=== PATIENT | male | born 2000 | race Caucasian/White ===

== ENCOUNTER → 2024-02-20 07:44 | Outpatient (CLI) | payer OTHER, SELFPAY ==
--- NOTE | 2024-02-20 07:47 | DI.MRI.S_ITS ---
PROCEDURE: MR ANKLE LT WO CON INDICATIONS: LT ANKLE SPRAIN TECHNIQUE: Noncontrast sagittal T1 spin echo and T2 fast spin echo with fat saturation, axial proton density fast spin echo and T2 fast spin echo with fat saturation, coronal T1 spin echo and T2 fast spin echo with fat saturation through the ankle/hindfoot. COMPARISON: None. FINDINGS: Image quality: Excellent Tendons: Mild tenosynovitis of the posterior tibialis. The flexor digitorum longus and the flexor hallucis longus are unremarkable. The extensor tendons are unremarkable. Longitudinal split tear of the peroneal brevis. The peroneal longus is unremarkable. The distal Achilles tendon is unremarkable. Ligaments: The anterior and the posterior tibiofibular ligaments are unremarkable. Marked thickening of the anterior talofibular ligament, representing prior sprain. The posterior talofibular ligament is intact. Thickening of the calcaneofibular ligament, representing prior sprain. Prior sprain of the deep portion of the deltoid ligament. Sinus tarsi: No fibrosis Plantar fascia: Unremarkable Muscle: Normal in signal Bones: Mild marrow edema the medial malleolus, favor reactive. No acute fracture of the medial malleolus. No osteochondral lesion of the talus dome. Trace tibiotalar effusion. IMPRESSION: 1. Longitudinal split tear of the peroneal brevis. 2. Prior sprain of the anterior talofibular and the calcaneofibular ligament. 3. Prior sprain of the deep portion of the deltoid ligament with subjacent reactive marrow edema of the medial malleolus. Dictated by: Lexy Pierson M.D. on 02/20/2024 at 13:00 Approved by: Lexy Pierson M.D. on 02/20/2024 at 13:06
== END ==
PROVIDERS: PCP Nurse Practitioner Family; Referring Provider Nurse Practitioner Family; Visit Provider Nurse Practitioner Family
DX: M25.572 Pain in left ankle and joints of left foot (principal); S96.812A Strain of other specified muscles and tendons at ankle and foot level, left foot, initial encounter; M25.472 Effusion, left ankle; Z87.828 Personal history of other (healed) physical injury and trauma
CPT/HCPCS: 73721

== ENCOUNTER → 2024-08-10 13:08 | Outpatient (CLI) | payer OTHER, SELFPAY ==
[2024-08-10 14:02] LABS: Influenza A - CEPHEID Flu A NEGATIVE (NEGATIVE); Influenza B - CEPHEID Flu B NEGATIVE (NEGATIVE); Respiratory Syncytial Virus Negative (Negative)
[2024-08-10 14:15] LABS: COVID-19 CEPHEID 4-PLEX PCR Negative (Negative)
== END ==
PROVIDERS: PCP Nurse Practitioner Family; Visit Provider Physician Assistant Surgical
DX: R52 Pain, unspecified (principal); R11.0 Nausea; R50.9 Fever, unspecified
CPT/HCPCS: 0241U